=== PATIENT | male | born 1970 | race African-American/Black ===

== ENCOUNTER 2024-06-13 13:45 | Inpatient (IN) | payer OTHER ==
[2024-06-13 14:08] VITALS: BMI 26.9
[2024-06-13] MEDS ORDERED: guaiFENesin 600 MG TABLET.ER (FP) PO PRN (14:41)
[2024-06-13] MEDS ORDERED: BENZOCAINE/MENTHOL (CHLORASEPTIC ) LOZENGE MM PRN (14:41)
[2024-06-13] MEDS ORDERED: IBUPROFEN 400 MG TABLET (FP) PO PRN (14:41)
[2024-06-13] MEDS ORDERED: LOPERAMIDE HCL 2 MG CAPSULE PO PRN (14:41)
[2024-06-13] MEDS ORDERED: DICYCLOMINE HCL 10 MG CAPSULE PO PRN (14:41)
[2024-06-13] MEDS ORDERED: hydrOXYzine PAMOATE 25 MG CAPSULE (FP) PO PRN (14:41)
[2024-06-13] MEDS ORDERED: BENZONATATE 200 MG CAPSULE PO PRN (14:41)
[2024-06-13] MEDS ORDERED: chlordiazePOXIDE HCL 25 MG CAPSULE PO PRN (14:41)
[2024-06-13] MEDS ORDERED: MAG HYDROX/AL HYDROX/SIMETH 30 ML UNIT-DOSE CUP PO PRN (14:41)
[2024-06-13] MEDS ORDERED: ONDANSETRON *ODT* 4 MG TABLET SL PRN (14:41)
[2024-06-13] MEDS ORDERED: NALOXONE (NARCAN) HCL 4 MG/0.1 ML SPRAY NS PRN (14:41)
[2024-06-13] MEDS ORDERED: MAGNESIUM HYDROX 2400MG/30ML ORAL SUSPENSION 30 ML CUP PO PRN (14:41)
[2024-06-13] MEDS ORDERED: BISMUTH SUBSALICYLATE 262 MG/15 ML BTL PO PRN (14:41)
[2024-06-13] MEDS ORDERED: POLYETHYLENE GLYCOL (HEALTHYLAX) 3350 17 GM PACKET PO PRN (14:41)
[2024-06-13] MEDS: NICOTINE 14 MG/24 HOURS TOPICAL PATCH TD SCH (14:46)
[2024-06-13] MEDS ORDERED: PRENATAL VITAMINS W/ FOLIC ACID TABLET (FP) PO ONE (15:03)
[2024-06-13] MEDS: PRENATAL VITAMINS W/ FOLIC ACID TABLET (FP) PO SCH (15:04)
[2024-06-13] MEDS: chlordiazePOXIDE HCL 25 MG CAPSULE PO SCH (17:16)
[2024-06-13] MEDS: NICOTINE POLACRILEX 2 MG GUM BUC PRN (17:17)
[2024-06-13] MEDS: MELATONIN 5 MG TABLETS PO SCH (22:25)
[2024-06-13] MEDS: THIAMINE 100 MG TABLET PO SCH (22:25)
[2024-06-13] MEDS: OLANZapine 10 MG TABLET PO SCH (22:25)
[2024-06-13] MEDS: traZODone HCL 100 MG TABLET (FP) PO SCH (22:25)
[2024-06-14 12:21] LABS: BASO % 0.6 % (0-2.0); HEMATOCRIT 41.8 % (35.4-49); HEMOGLOBIN 13.7 GM/dL (11.7-16.9); MCH 29.5 pg (25.7-33.7); MCHC 32.7 g/dl (32.0-35.9); MEAN PLT VOLUME 7.7 fl (7.5-11.1); MONO % 10.4 % (3.8-10.2); PLATELET COUNT 328 10^3/uL (134-434); RBC 4.64 M/mm3 (4.00-5.60); RDW 14.2 % (11.9-15.9); WHITE BLOOD COUNT 6.6 K/mm3 (4.0-10.0)
[2024-06-14 12:32] LABS: CHLORIDE 107 mmol/L (98-107); POTASSIUM 4.4 mmol/L (3.5-5.1); SODIUM 141 mmol/L (136-145)
[2024-06-14 12:45] LABS: ANION GAP 4 mmol/L (4-13); BLOOD UREA NITROGEN 11.9 mg/dL (7-18); CALCIUM 9.1 mg/dL (8.5-10.1); CO2 30 mmol/L (21-32); GLUCOSE,RANDOM 92 mg/dL (74-106)
[2024-06-14 12:48] LABS: CREATININE 0.8 mg/dL (0.55-1.3); SGOT/AST 15 U/L (15-37); SGPT/ALT 29 U/L (13-61)
[2024-06-14 12:49] LABS: BILIRUBIN,TOTAL 0.4 mg/dL (0.2-1); TOT PROT 6.4 g/dl (6.4-8.2)
[2024-06-14 12:51] LABS: ALK PHOS 82 U/L (45-117)
[2024-06-15] MEDS: chlordiazePOXIDE HCL 25 MG CAPSULE PO SCH (05:49)
[2024-06-16] MEDS ORDERED: chlordiazePOXIDE HCL 10 MG CAPSULE PO PRN
[2024-06-16] MEDS: chlordiazePOXIDE HCL 10 MG CAPSULE PO SCH (05:44)
[2024-06-16] MEDS: METHOCARBAMOL 500 MG TABLET PO PRN (22:22)
[2024-06-17] MEDS: chlordiazePOXIDE HCL 10 MG CAPSULE PO SCH (05:17)
[2024-06-18] MEDS: chlordiazePOXIDE HCL 10 MG CAPSULE PO ONE (05:51)
[2024-06-19] MEDS: NICOTINE POLACRILEX 2 MG LOZENGE BC PRN (16:02)
[2024-06-21] MEDS: NICOTINE POLACRILEX 2 MG GUM BC PRN (11:09)
[2024-07-06] MEDS: IBUPROFEN 600 MG TABLET (FP) PO PRN (14:56)
[2024-07-07 06:37] VITALS: RESP 20
[2024-07-07] MEDS: ACETAMINOPHEN 325 MG TABLET (FP) PO PRN (10:05)
[2024-07-10] MEDS ORDERED: NALOXONE (NYS OPIOID OVERDOSE PROGRAM) 4 MG/0.1 ML SPRAY NS SCH (14:00)
[2024-07-11 06:46] VITALS: BP 129/88; PULSE 83; TEMP 97.7
[2024-07-11] MEDS: NALOXONE (NYS OPIOID OVERDOSE PROGRAM) 4 MG/0.1 ML SPRAY NS PRN (07:41)
== END 2024-07-11 07:25 | disposition home or self-care (01) | DRG 895 ==
LOC: YASAS 13:45 → Y3N 14:47 → Y3E 06-18 13:32
PROVIDERS: ADMIT Allergy & Immunology; ATTEND Psychiatry & Neurology Pain Medicine
PROC: HZ42ZZZ Group Counseling for Substance Abuse Treatment, Cognitive-Behavioral (ICD-10-PCS; principal; 2024-06-13)
DX: F11.20 Opioid dependence, uncomplicated (principal); F13.20 Sedative, hypnotic or anxiolytic dependence, uncomplicated; Z59.00 Homelessness unspecified; F10.20 Alcohol dependence, uncomplicated; F14.10 Cocaine abuse, uncomplicated; F12.20 Cannabis dependence, uncomplicated; F17.210 Nicotine dependence, cigarettes, uncomplicated; F25.1 Schizoaffective disorder, depressive type; G47.00 Insomnia, unspecified; L85.3 Xerosis cutis; Z56.0 Unemployment, unspecified
CPT/HCPCS: 36415; 80053; 80305; 80307; 85025; 87811; 93005; 93010

== ENCOUNTER 2024-09-18 10:09 | Inpatient (IN) | payer OTHER ==
[2024-09-18 10:27] VITALS: BMI 35.1
[2024-09-18] MEDS ORDERED: BENZOCAINE/MENTHOL (CHLORASEPTIC ) LOZENGE MM PRN (10:50)
[2024-09-18] MEDS ORDERED: MAGNESIUM HYDROX 2400MG/30ML ORAL SUSPENSION 30 ML CUP PO PRN (10:50)
[2024-09-18] MEDS ORDERED: ACETAMINOPHEN 325 MG TABLET (FP) PO PRN (10:50)
[2024-09-18] MEDS ORDERED: MAG HYDROX/AL HYDROX/SIMETH 30 ML UNIT-DOSE CUP PO PRN (10:50)
[2024-09-18] MEDS ORDERED: guaiFENesin 600 MG TABLET.ER (FP) PO PRN (10:50)
[2024-09-18] MEDS ORDERED: NALOXONE (NARCAN) HCL 4 MG/0.1 ML SPRAY NS PRN (10:50)
[2024-09-18] MEDS ORDERED: IBUPROFEN 400 MG TABLET (FP) PO PRN (10:50)
[2024-09-18] MEDS ORDERED: chlordiazePOXIDE HCL 25 MG CAPSULE PO PRN (10:50)
[2024-09-18] MEDS ORDERED: LOPERAMIDE HCL 2 MG CAPSULE PO PRN (10:50)
[2024-09-18] MEDS ORDERED: BENZONATATE 200 MG CAPSULE PO PRN (10:50)
[2024-09-18] MEDS ORDERED: DICYCLOMINE HCL 10 MG CAPSULE PO PRN (10:50)
[2024-09-18] MEDS ORDERED: POLYETHYLENE GLYCOL (HEALTHYLAX) 3350 17 GM PACKET PO PRN (10:50)
[2024-09-18] MEDS ORDERED: BISMUTH SUBSALICYLATE 524 MG/30 ML PO PRN (10:50)
[2024-09-18] MEDS ORDERED: chlordiazePOXIDE HCL 25 MG CAPSULE ONE (11:13)
[2024-09-18] MEDS: chlordiazePOXIDE HCL 25 MG CAPSULE PO SCH (11:15)
[2024-09-18] MEDS: NICOTINE POLACRILEX 4 MG GUM BUC PRN (12:13)
[2024-09-18] MEDS: NICOTINE POLACRILEX 4 MG LOZENGE BC PRN (14:32)
[2024-09-18] MEDS: NALTREXONE HCL 50 MG TABLET PO ONE (14:49)
[2024-09-18] MEDS ORDERED: MELATONIN 5 MG TABLETS PO SCH (22:00)
[2024-09-18] MEDS: OLANZapine 10 MG TABLET PO SCH (22:20)
[2024-09-18] MEDS: traZODone HCL 100 MG TABLET (FP) PO SCH (22:21)
[2024-09-18] MEDS: MIRTAZAPINE 15 MG TABLET (FP) PO SCH (22:21)
[2024-09-18] MEDS: THIAMINE 100 MG TABLET PO SCH (22:21)
[2024-09-19] MEDS: NALTREXONE HCL 50 MG TABLET PO SCH (10:27)
[2024-09-19] MEDS: PRENATAL VITAMINS W/ FOLIC ACID TABLET (FP) PO SCH (10:27)
[2024-09-19] MEDS: ONDANSETRON *ODT* 4 MG TABLET SL PRN (10:30)
[2024-09-19] MEDS: IBUPROFEN 600 MG TABLET (FP) PO PRN (10:30)
[2024-09-19 11:26] LABS: BASO % 0.5 % (0-2.0); EOS % 3.5 % (0-4.5); HEMATOCRIT 47.4 % (35.4-49); HEMOGLOBIN 15.7 GM/dL (11.7-16.9); LYMPH % 54.8 % (8-40); MCH 29.2 pg (25.7-33.7); MCHC 33.1 g/dl (32.0-35.9); MEAN CELL VOLUME 88.4 fl (80-96); MEAN PLT VOLUME 7.7 fl (7.5-11.1); MONO % 12.2 % (3.8-10.2); PLATELET COUNT 247 10^3/uL (134-434); RBC 5.37 M/mm3 (4.00-5.60); RDW 14.1 % (11.9-15.9); WHITE BLOOD COUNT 3.4 K/mm3 (4.0-10.0)
[2024-09-19 11:47] LABS: POTASSIUM 5.4 mmol/L (3.5-5.1)
[2024-09-19 11:52] LABS: BLOOD UREA NITROGEN 14.7 mg/dL (7-18); CALCIUM 9.8 mg/dL (8.5-10.1)
[2024-09-19 11:55] LABS: CREATININE 1.1 mg/dL (0.55-1.3)
[2024-09-19 11:57] LABS: BILIRUBIN,TOTAL 0.7 mg/dL (0.2-1); TOT PROT 8.3 g/dl (6.4-8.2)
[2024-09-20] MEDS: chlordiazePOXIDE HCL 25 MG CAPSULE PO SCH (05:41)
[2024-09-20] MEDS: METHOCARBAMOL 500 MG TABLET PO PRN (09:41)
[2024-09-20] MEDS: SODIUM POLYSTYRENE SULFONATE 15 GM/60 ML BOTTLE PO ONE (10:59)
[2024-09-21] MEDS ORDERED: chlordiazePOXIDE HCL 10 MG CAPSULE PO PRN
[2024-09-21] MEDS: chlordiazePOXIDE HCL 10 MG CAPSULE PO SCH (05:47)
[2024-09-21] MEDS: hydrOXYzine PAMOATE 25 MG CAPSULE (FP) PO PRN (10:54)
[2024-09-22] MEDS: chlordiazePOXIDE HCL 10 MG CAPSULE PO SCH (05:53)
[2024-09-23] MEDS: chlordiazePOXIDE HCL 10 MG CAPSULE PO ONE (05:38)
[2024-09-23] MEDS ORDERED: OLANZapine 10 MG TABLET PO SCH (22:00)
[2024-09-23] MEDS ORDERED: MIRTAZAPINE 15 MG TABLET (FP) PO SCH (22:00)
[2024-09-23] MEDS ORDERED: guaiFENesin 600 MG TABLET.ER (FP) PO PRN (22:08)
[2024-09-23] MEDS ORDERED: DOCUSATE SODIUM 100 MG CAPSULE (FP) PO PRN (22:08)
[2024-09-23] MEDS ORDERED: BENZONATATE 200 MG CAPSULE PO PRN (22:08)
[2024-09-23] MEDS ORDERED: BISACODYL 5 MG TABLET.DR (FP) PO PRN (22:08)
[2024-09-23] MEDS: OLANZapine 10 MG TABLET PO SCH (22:20)
[2024-09-23] MEDS: traZODone HCL 100 MG TABLET (FP) PO SCH (22:21)
[2024-09-24] MEDS ORDERED: NALTREXONE HCL 50 MG TABLET PO SCH (10:00)
[2024-09-24] MEDS ORDERED: traZODone HCL 100 MG TABLET (FP) PO SCH (22:00)
[2024-09-24] MEDS ORDERED: OLANZapine 10 MG TABLET PO SCH (22:00)
[2024-10-06 14:09] LABS: HIV INTERPRETATION NEGATIVE (NEGATIVE)
[2024-10-13 06:39] VITALS: RESP 20; TEMP 98
[2024-10-14 06:27] VITALS: BP 141/90; PULSE 93
== END 2024-10-14 09:04 | disposition home or self-care (01) | DRG 895 ==
LOC: YASAS 10:09 → Y6N 11:21 → Y3E 09-23 11:51 → UNDODISIN 09-23 11:58
PROVIDERS: ADMIT Allergy & Immunology; ATTEND Psychiatry & Neurology Pain Medicine
PROC: HZ42ZZZ Group Counseling for Substance Abuse Treatment, Cognitive-Behavioral (ICD-10-PCS; principal; 2024-09-18)
DX: F10.20 Alcohol dependence, uncomplicated (principal); F14.20 Cocaine dependence, uncomplicated; Z59.00 Homelessness unspecified; F17.210 Nicotine dependence, cigarettes, uncomplicated; F25.9 Schizoaffective disorder, unspecified; G47.00 Insomnia, unspecified; L85.3 Xerosis cutis
CPT/HCPCS: 36415; 80053; 80305; 80307; 84132; 85025; 86780; 87389; 93005; 93010; Q0162

== ENCOUNTER 2024-11-21 18:41 | Inpatient (IN) | payer OTHER ==
[2024-11-21 18:59] VITALS: BMI 28.7
[2024-11-21] MEDS ORDERED: LOPERAMIDE HCL 2 MG CAPSULE PO PRN (20:30)
[2024-11-21] MEDS ORDERED: NALOXONE (NARCAN) HCL 4 MG/0.1 ML SPRAY NS PRN (20:30)
[2024-11-21] MEDS ORDERED: IBUPROFEN 400 MG TABLET (FP) PO PRN (20:30)
[2024-11-21] MEDS ORDERED: ONDANSETRON *ODT* 4 MG TABLET SL PRN (20:30)
[2024-11-21] MEDS ORDERED: MAG HYDROX/AL HYDROX/SIMETH 30 ML UNIT-DOSE CUP PO PRN (20:30)
[2024-11-21] MEDS ORDERED: IBUPROFEN 600 MG TABLET (FP) PO PRN (20:30)
[2024-11-21] MEDS ORDERED: DICYCLOMINE HCL 10 MG CAPSULE PO PRN (20:30)
[2024-11-21] MEDS ORDERED: ACETAMINOPHEN 325 MG TABLET (FP) PO PRN (20:30)
[2024-11-21] MEDS ORDERED: BISMUTH SUBSALICYLATE 524 MG/30 ML PO PRN (20:30)
[2024-11-21] MEDS ORDERED: BENZONATATE 200 MG CAPSULE PO PRN (20:30)
[2024-11-21] MEDS ORDERED: guaiFENesin 600 MG TABLET.ER (FP) PO PRN (20:30)
[2024-11-21] MEDS: MELATONIN 5 MG TABLETS PO SCH (22:32)
[2024-11-21] MEDS: THIAMINE 100 MG TABLET PO SCH (22:32)
[2024-11-21] MEDS: METHOCARBAMOL 500 MG TABLET PO PRN (22:32)
[2024-11-21] MEDS: hydrOXYzine PAMOATE 25 MG CAPSULE (FP) PO PRN (22:32)
[2024-11-21] MEDS: NICOTINE POLACRILEX 4 MG LOZENGE BC PRN (22:39)
[2024-11-22] MEDS: PRENATAL VITAMINS W/ FOLIC ACID TABLET (FP) PO SCH (10:12)
[2024-11-22] MEDS ORDERED: diazePAM 5 MG TABLET PO PRN (10:22)
[2024-11-22] MEDS: diazePAM 5 MG TABLET PO SCH (10:35)
[2024-11-22 10:42] LABS: HEMATOCRIT 44.3 % (40.1-51.0); HEMOGLOBIN 13.9 g/dL (13.7-17.5); MCHC 31.4 g/dl (32.3-36.5); MEAN CELL VOLUME 90.2 fl (79.0-92.2); MEAN PLT VOLUME 9.3 fl (9.4-12.4); PLATELET COUNT 371 x10^3/uL (163-337); RDW 12.7 % (12.2-16.1)
[2024-11-22 10:45] LABS: CHLORIDE 104 mmol/L (98-107); SODIUM 140 mmol/L (136-145)
[2024-11-22 10:51] LABS: ANION GAP 7 mmol/L (4-13); CO2 29 mmol/L (21-32); GLUCOSE,RANDOM 91 mg/dL (74-106)
[2024-11-22 10:53] LABS: SGOT/AST 24 U/L (15-37); SGPT/ALT 33 U/L (13-61)
[2024-11-22 10:54] LABS: ALBUMIN 3.6 g/dl (3.4-5.0); CREATININE 0.9 mg/dL (0.55-1.3); TOT PROT 7.2 g/dl (6.4-8.2)
[2024-11-22 10:55] LABS: BILIRUBIN,TOTAL 0.5 mg/dL (0.2-1)
[2024-11-22 10:56] LABS: ALK PHOS 100 U/L (45-117)
[2024-11-22] MEDS: traZODone HCL 100 MG TABLET (FP) PO SCH (22:50)
[2024-11-22] MEDS: OLANZapine 10 MG TABLET PO SCH (22:51)
[2024-11-24] MEDS: diazePAM 5 MG TABLET PO SCH (06:10)
[2024-11-24] MEDS: MAGNESIUM HYDROX 2400MG/30ML ORAL SUSPENSION 30 ML CUP PO PRN (10:29)
[2024-11-24] MEDS: BISACODYL 5 MG TABLET.DR (FP) PO ONE ×2 (16:05→16:06)
[2024-11-24] MEDS: POLYETHYLENE GLYCOL (HEALTHYLAX) 3350 17 GM PACKET PO PRN (22:22)
[2024-11-25] MEDS: diazePAM 5 MG TABLET PO SCH (05:41)
[2024-11-25] MEDS: BISACODYL 5 MG TABLET.DR (FP) PO ONE (14:34)
[2024-11-26] MEDS: diazePAM 5 MG TABLET PO ONE (05:28)
[2024-11-26] MEDS: BENZOCAINE/MENTHOL (CHLORASEPTIC ) LOZENGE MM PRN (06:58)
[2024-11-26 09:17] VITALS: BP 115/61; PULSE 86; RESP 20; TEMP 97.7
== END 2024-11-26 09:32 | disposition home or self-care (01) | DRG 897 ==
LOC: YASAS 18:41 → Y3N 21:46
PROVIDERS: ADMIT Allergy & Immunology; ATTEND Allergy & Immunology
PROC: HZ2ZZZZ Detoxification Services for Substance Abuse Treatment (ICD-10-PCS; principal; 2024-11-21)
DX: F10.230 Alcohol dependence with withdrawal, uncomplicated (principal); F14.20 Cocaine dependence, uncomplicated; Z59.00 Homelessness unspecified; F17.210 Nicotine dependence, cigarettes, uncomplicated; F25.9 Schizoaffective disorder, unspecified; K59.00 Constipation, unspecified
CPT/HCPCS: 36415; 80053; 80305; 80307; 85027; 86780